=== PATIENT | female | born 1990 | race African-American/Black ===

== ENCOUNTER 2017-06-04 14:42 | Emergency (ER) | payer OTHER ==
--- NOTE | 2017-06-04 15:25 | ED Physician Documentation ---
General Adult - HISTORIAN Historian: patient - HPI Stated Complaint: Extremities Cold Chief Complaint: General Adult Additional Information: Patient has been having some problems with her hands and feet feeling cold. Has been going of for years. Was told previously told that she had to exercise more and went through some PT. Has not informed PCP about her symptoms. Last night noticed that her legs were shaking, she is worried that she might have diabetes. Does not feel that her symptoms are any worse than what they have been before. Timing: still present Severity: mild - ROS CONST: no problems. denies: fever, chills - PAST HX Past History: none Other History: other Surgeries/Procedures: none Immunizations: referred to PCP Allergies/Adverse Reactions: Allergies Allergy/AdvReac Type Severity Reaction Status Date / Time No Known Allergies Allergy Verified 06/04/17 14:57 Home Medications: Ambulatory Orders Medication Instructions Recorded NK [NK] 01/06/14 - SOCIAL HX Smoking History: less than 1 pack/day Alcohol Use: none Drug Use: none - FAMILY HX Family History: No - VITAL SIGNS Vital Signs: Vital Signs Temp Pulse Resp BP Pulse Ox 98.1 F 74 18 151/87 99 06/04/17 14:45 06/04/17 14:45 06/04/17 14:45 06/04/17 14:45 06/04/17 14:45 - REVIEWED ASSESSMENTS Nursing Assessment Reviewed: Yes Vitals Reviewed: Yes Progress - Progress Progress: 15:50 No change 16:23 No change General Adult Physical Exam - PHYSICAL EXAM GENERAL APPEARANCE: no distress EENT: ENT inspection normal, pharynx normal, no signs of dehydration NECK: normal inspection, thyroid normal, supple. No: lymphadenopathy RESPIRATORY: no resp distress, chest non-tender, breath sounds normal. No: wheezes, rales, rhonchi CVS: reg rate & rhythm, heart sounds normal, equal pulses, no murmur, no gallop ABDOMEN: soft, no organomegaly, no distension SKIN: warm/dry, normal color, other (hands and toes do feel cool to touch but there is good capillary refill. ) NEURO: oriented X3, mood/affect nml, cognition normal Discharge Clincal Impression: Cold extremities Referrals: Primary Doctor,No [Primary Care Provider] - 2 Days Additional Instructions: Keep your appointment with Dr Johnson as scheduled. Try to keep your hands and feet warm with gloves and socks. Condition: Stable Disposition: 01 HOME, SELF-CARE Decision to Admit: NO Date of Decison to Admit: 06/04/17 Decision Time: 17:22
[2017-06-04 16:00] LABS: BASOPHILS % 0.7 (0.0-1.5); EOSINOPHILS % 1.8 % (0.0-6.8); MEAN CORPUSCULAR HEMOGLOBIN 30.9 pg (28.0-34.0); MEAN CORPUSCULAR VOLUME 92.1 fl (80.0-100.0); MONOCYTES % 4.7 % (0.0-11.0); NEUTROPHILS # 5.2 # k/uL (1.4-7.7)
[2017-06-04 16:06] LABS: eGFR (African) > 60; eGFR (Non-African) > 60
[2017-06-04 17:48] VITALS: BP 109/79
== END 2017-06-04 17:35 | disposition home or self-care (01) ==
LOC: ED 14:42
DX: R20.9 Unspecified disturbances of skin sensation (principal)
CPT/HCPCS: 36415; 80053; 84443; 85025; 85651; 99283